=== PATIENT | male | born 1945 | race Caucasian/White ===

== ENCOUNTER → 2017-02-09 | Outpatient (CLI) | payer OTHER | LOC: CAT 12:08 | DX: Z13.6 Encounter for screening for cardiovascular disorders (principal) ==

== ENCOUNTER → 2017-03-16 | Outpatient (CLI) | payer OTHER ==
[~2017-03-16] VITALS: Ht 172.7 cm; Wt 81.6 kg
[~2017-03-16] MED LIST: AMARYL2 MG PO; JARDIANCE10 MG PO; LIPITOR 20 MG T20 M1 PO; METFORMIN HCL1000 MG PO; YOSPRALA DR 811 EACH PO
--- NOTE | ~2017-03-16 | CATHLAB ---
[facility] [address] [place] [address] INVASIVE PROCEDURE REPORT Name: WES PEACOCK [id number] Admission: 03/16/17 Attend Phys: Carlos Sorensen, Discharge: Date of : 47 Date of Service: 03/16/17 0924 Report #: [id number] THIS REPORT FOR: //name// APPROVED REPORT Patient Details Patient Status: Out-Patient Room #: The patient is a 71 year-old male Event Personnel Carlos Sorensen Multimedia Artist, Ronni Abbott RN RN, Ni Fernández, Omkar Kinney Monitor Procedures Performed Art Access - R femoral artery* Left Heart Cath w/or w/o Coronaries [id number] [facility] FFR [id number] FFR Hemostasis w/ Mynx Procedure Narrative The patient was brought electively to the Cardiac Catheterization Laboratory and was prepped and draped in a sterile manner. The Right Groin^ was infiltrated with 1% Lidocaine subcutaneous anesthesia. A PINNACLE 6FR Sheath #[id number] sheath was inserted into the RFA^. Coronary angiography was performed using coronary diagnostic catheters. The right coronary system was accessed and visualized with a JR 4 catheter. The left coronary system was accessed and visualized with a JL 4 catheter. The left ventricle was accessed and visualized with a Pigtail catheter. Left ventricular/Aortic Valve gradient assessed via catheter pullback. Left ventriculogram was performed in 30 degree projection. Pre-demployment femoral angiogram was performed . Closure device was deployed with a 6 Fr Mynx. The patient tolerated the procedure well and there were no complications associated with the procedure. There was no hematoma. Ventriculography demonstrated normal global and regional left ventricular systolic function. Ejection fraction 65%. Mitral regurgitation was absent. Attention was turned to performing FFR of the proximal LAD. A 6 Italian JL 4 guide catheter was placed over wire with its tip at the ostium of the left main. 2500 units of heparin were administered. An FFR was placed down the LAD. Pre-adenosine FFR assessment was 0.98. With adenosine infusion the FFR remained unchanged. All catheters and tubes removed. Intraoperative Conscious Sedation Sedation start time: 08:05 Case end Time: 08:35 Fentanyl 50.0 mcg Versed 1.[address] [address] INVASIVE PROCEDURE REPORT Name: WES PEACOCK Room #: REG [facility]#: [id number] Admission: 03/16/17 Attend Phys: Carlos Sorensen, Discharge: Date of : 47 Date of Service: 03/16/17 0924 Report #: [id number] Fluoro Time: 3.23 minutes Dose: DAP 4833.30 cGycm2 606 mGy Contrast Type and Amount: Omnipaque 150 ml Coronary Angiography The patient's coronary anatomy is right dominant. [place] Artery Percent Stenosis Left Main: 0 % Prox LAD: 60 % Mid/Distal LAD: 0 % Circumflex: 0 % RCA: 0 % Ramus: % Diagnostic Cath LAD Proximal, calcified LAD stenosis in range of 60%. Not flow limiting by FFR assessment, either at rest or wtih adenosine infusion (0.98) Hemodynamics The aortic pressure is 135/62 mmHg with a mean of 91 mmHg. The left ventricular pressure is 127/1 mmHg with a mean of mmHg. The left ventricular end diastolic pressure is 7 mmHg. Recommendations Aggressive Medical Therapy <ELECTRONICALLY SIGNED> By: Carlos Sorensen MD, FACC 03/16/17923 3 3 Carlos Sorensen MD, FACC /INF
[2017-03-16 07:10] VITALS: BP 138/64
== END | disposition home or self-care (01) ==
LOC: CATH 06:47
DX: I25.10 Atherosclerotic heart disease of native coronary artery without angina pectoris (principal); Z79.82 Long term (current) use of aspirin; Z79.899 Other long term (current) drug therapy

== ENCOUNTER → 2020-01-02 | Outpatient (CLI) | payer OTHER | LOC: SJCVC 10:02 | DX: I25.10 Atherosclerotic heart disease of native coronary artery without angina pectoris (principal); I10 Essential (primary) hypertension; E78.5 Hyperlipidemia, unspecified; E11.9 Type 2 diabetes mellitus without complications; Z90.49 Acquired absence of other specified parts of digestive tract; Z79.899 Other long term (current) drug therapy; Z87.891 Personal history of nicotine dependence ==

== ENCOUNTER → 2021-01-04 | Outpatient (CLI) | payer OTHER | LOC: SJCVC 09:50 | PROVIDERS: ATTEND Internal Medicine | DX: R94.31 Abnormal electrocardiogram [ECG] [EKG] (principal); I25.10 Atherosclerotic heart disease of native coronary artery without angina pectoris; E78.5 Hyperlipidemia, unspecified; I10 Essential (primary) hypertension; E11.9 Type 2 diabetes mellitus without complications; Z90.49 Acquired absence of other specified parts of digestive tract; Z88.2 Allergy status to sulfonamides; Z79.82 Long term (current) use of aspirin; Z79.899 Other long term (current) drug therapy; Z87.891 Personal history of nicotine dependence; Z82.49 Family history of ischemic heart disease and other diseases of the circulatory system ==

== ENCOUNTER → 2021-07-07 | Outpatient (CLI) | payer OTHER | LOC: SJCVCIMAG 09:51 | PROVIDERS: ATTEND Internal Medicine | DX: R00.0 Tachycardia, unspecified (principal); R93.1 Abnormal findings on diagnostic imaging of heart and coronary circulation; E78.5 Hyperlipidemia, unspecified; I10 Essential (primary) hypertension ==